=== PATIENT | female | born 1980 | race Caucasian/White ===

== ENCOUNTER 2016-11-08 21:33 | Emergency (ER) | payer OTHER ==
[~2016-11-08 21:33] MED LIST: BACTRIM DS 8001 TAB PO; BENZONATATE100 MG PO; CEFDINIR300 MG PO; CEPHALEXIN500 MG PO; CLEOCIN HCL300 MG PO; DOXYCYCLINE HY100 M4 PO; FIORICET 50-301 EACH PO; FLAGYL 25O MG250 M1 PO; FLAGYL250 M1 PO; FLAGYL500 MG PO; FLEXERIL10 MG PO; KEFLEX250 M1 PO; KEFLEX500 M1 PO; KEFLEX500 MG PO; MOTRIN 600 MG600 MG PO; MOTRIN800 MG PO; NASONEX17 GM NASB; PROBIOTIC FORMU1 CAP PO; TYLENOL TAB 32325 MG PO; TYLENOL325 M1 PO; ZOFRAN ODT4 M1 SL
[2016-11-08 21:40] VITALS: BP 121/81
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
[2016-11-08] MEDS ORDERED: CYCLOBENZAPRINE10 M1 PO (22:44)
== END 2016-11-08 23:00 ==
LOC: ERH 21:33
DX: S09.90XA Unspecified injury of head, initial encounter (principal); V49.40XA Driver injured in collision with unspecified motor vehicles in traffic accident, initial encounter

== ENCOUNTER 2016-12-28 15:00 | Emergency (ER) | payer OTHER ==
[~2016-12-28] VITALS: Ht 167.6 cm; Wt 113.4 kg
[~2016-12-28 15:00] MED LIST changes: +CYCLOBENZAPRINE10 M1 PO
--- NOTE | 2016-12-28 15:54 | RADIOLOGY REPORT ---
EXAMINATION: XR CHEST CLINICAL INFORMATION: Cough and nasal congestion. COMPARISON: None. TECHNIQUE: PA and lateral views of the chest were obtained. FINDINGS: The lungs are well-expanded and clear without focal airspace consolidation. No pleural effusions or pneumothoraces are identified. Cardiomediastinal contours are within normal limits. Soft tissues are unremarkable. No acute osseous abnormality is identified. IMPRESSION: No acute pulmonary process.
[2016-12-28] MEDS ORDERED: MUCINEX FAST-M1 EA12 PO (16:19)
[2016-12-28 17:15] LABS: ABSOLUTE BASOPHIL COUNT 0 /CUMM (0.0-0.2); ABSOLUTE EOSINOPHIL COUNT 0 /CUMM (0.0-0.7); ABSOLUTE GRANULOCYTE CT 3.3 /CUMM (1.4-6.5); ABSOLUTE MONOCYTE COUNT 0.4 /CUMM (0.10-0.60); BASOPHIL % 0.3 % (0.0-2.0); EOSINOPHIL % 0 % (0-5); MEAN CORPUSCULAR HGB 27.5 PG (27.0-31.0); MEAN CORPUSCULAR HGB CONC 32.8 G/DL (33.0-37.0); MEAN CORPUSCULAR VOLUME 83.9 FL (81.0-99.0); MEAN PLATELET VOLUME 8.1 FL (7.4-10.4); PLATELET COUNT 170 /CUMM (130-400); RBC DISTRIBUTION WIDTH 13.8 % (11.5-14.5); RED BLOOD CELL CT 5.12 /CUMM (4.20-5.40); WHITE BLOOD CELL COUNT 4.7 /CUMM (4.8-10.8)
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
[2016-12-28 18:30] VITALS: BP 144/79
== END 2016-12-28 18:32 ==
LOC: ERH 15:00
PROVIDERS: Internal Medicine Interventional Cardiology
DX: J11.1 Influenza due to unidentified influenza virus with other respiratory manifestations (principal); R07.89 Other chest pain; Z87.891 Personal history of nicotine dependence
CPT/HCPCS: 1263; 87040; 93005; 93010; 96360

== ENCOUNTER 2017-12-11 17:21 | Emergency (ER) | payer OTHER ==
[~2017-12-11] VITALS: Ht 167.6 cm; Wt 117.9 kg
[~2017-12-11 17:21] MED LIST changes: +BUTALB-ACETAMI1 EACH PO; +IMITREX50 M1 PO; +MUCINEX FAST-M1 EA12 PO
--- NOTE | 2017-12-11 17:42 | ED GI/GU/ABDOMINAL COMPLAINT ---
See Addendum History of Present Illness General Chief Complaint: General Adult Stated Complaint: SENT IN BY YELITZA JACKSON FOR ?VOMITING AND FEVER Source: patient Exam Limitations: no limitations Vital Signs & Intake/Output Vital Signs & Intake/Output Vital Signs Date Time Temp Pulse Resp B/P B/P Pulse O2 O2 Flow FiO2 Mean Ox Delivery Rate 12/11 2234 88 18 117/52 98 Room Air 12/11 2143 98.5 87 19 121/69 99 Room Air 12/11 1726 96.3 109 15 123/87 98 Room Air Room Air Allergies Coded Allergies: clindamycin (Severe, C DIFF 12/11/17) Penicillins (HIVES 12/11/17) oxycodone (SWELLING THROAT 12/11/17) Reconcile Medications Butalb/Acetaminophen/Caffeine (Lnagfp-Nwslwpuj-Yqik 50-325-40) 50 MG-325 MG-40 MG TABLET 1-2 TAB PO Q8P HEADACHE Dicyclomine HCl 10 MG CAPSULE 1-2 CAP PO TID abd pain Ondansetron (Zofran Odt) 4 MG TAB.RAPDIS 1 TAB SL TID nausea Promethazine HCl 25 MG TABLET 1 TAB PO Q6P PRN nausea Sumatriptan Succinate (Imitrex) 50 MG TABLET 1 TAB PO AD HEADACHE Triage Note: PT SENT TO ED BY DR. JACKSON FOR C/C OF DIARRHEA, NAUSEA AND VOMITING. HAS BEEN ON FLAGYL FOR 14 DAYS WITHOUT RELIEF. HX OF CDIFF. PRESCRIBED VANCO BUT HAS NOT HAD CHANCE TO PICK IT UP. Triage Nurses Notes Reviewed? yes ? n Is pt currently ? No Onset: Abrupt Duration: week(s):, constant, continues in ED Timing: recent history Quality/Severity: cramping, moderate, sharpness Location: generalized abdomen Radiation: no radiation Activities at Onset: none No Modifying Factors: none HPI: 37-year-old female comes into the emergency room with complaints of lower abdominal cramping. She's had associated diarrhea has been going on for weeks. She has a remote history of C. difficile. She denies any recent antibiotic use. She reports that her diarrhea has been persistent. She was started on Flagyl for potential C. difficile. She followed up with her gastrologist Dr. Jackson who told her to finish the course of antibiotics. Her symptoms got better and then worse again. She is now still having persistent loose stool. She comes in for further evaluation. (Lance Strickland) Past History Travel History Traveled to [place] past 21 day No Medical History Any Pertinent Medical History? see below for history Neurological: NONE EENT: recurrent parotitis Cardiovascular: NONE Respiratory: NONE Gastrointestinal: C DIFF Hepatic: NONE Renal: nephrolithiasis Musculoskeletal: NONE Psychiatric: NONE Endocrine: NONE (gestational) Blood Disorders: SJOGRENS Cancer(s): NONE AUDIOVISUAL AIDS TECHNICIAN/Reproductive: NONE Other Medical Hx: Thymus mass History of MRSA: No History of VRE: No History of CDIFF: No Surgical History Surgical History: (x2) Psychosocial History Who do you live with Spouse Services at Home None What is your primary language Bulgarian Tobacco Use: Quit >30 days ago ETOH Use: denies use Illicit Drug Use: denies illicit drug use Family History Family History, If Any: SISTER FH: kidney failure Relation not specified for: Coronary artery disease in father Hypertension in sister Stroke or transient ischemic attack in father Type 2 diabetes mellitus in mother Hx Contributory? No (Lance Strickland) Review of Systems Review of Systems Constitutional: Reports: see HPI. EENTM: Reports: no symptoms. Respiratory: Reports: no symptoms. Cardiovascular: Reports: no symptoms. GI: Reports: see HPI. Genitourinary: Reports: no symptoms. Musculoskeletal: Reports: no symptoms. Skin: Reports: no symptoms. Neurological/Psychological: Reports: no symptoms. Hematologic/Endocrine: Reports: no symptoms. Immunologic/Allergic: Reports: no symptoms. All Other Systems: Reviewed and Negative (Lance Strickland) Physical Exam Physical Exam General Appearance: well developed/nourished, no apparent distress, alert Head: atraumatic, normal appearance Eyes: Bilateral: normal appearance. Ears, Nose, Throat, Mouth: hearing grossly normal, moist mucous membrane Neck: normal inspection Respiratory: normal breath sounds, no respiratory distress Cardiovascular: regular rate/rhythm Gastrointestinal: soft, non-tender Back: normal inspection Extremities: normal range of motion Neurologic/Psych: awake, alert, oriented x 3, normal gait Skin: intact, normal color Core Measures ACS in differential dx? No Sepsis Present: No Sepsis Focused Exam Completed? No (Lance Strickland) Progress Differential Diagnosis: appendicitis, bowel obstruction, cholecystitis, diverticulitis, inflamm bowel dis, COLITIS, C DIFF, GASOTROENTERITIS Plan of Care: Orders Procedure Date/time Status Add-on Test (ER Only) 12/11 1741 Active HUMAN BETA HCG SCREEN 12/11 1741 Complete CULTURE,STOOL 12/11 1732 Active C.DIFFICILE 12/11 1732 Active LACTIC ACID 12/11 1732 Complete COMPREHENSIVE METABOLIC PANEL 12/11 1732 Complete CBC WITHOUT DIFFERENTIAL 12/11 1732 Complete Laboratory Tests 12/11/172032: Lactic Acid Cancelled 12/11/171741: Anion Gap 15, Estimated GFR > 60, BUN/Creatinine Ratio 15.0, Glucose 99, Lactic Acid 0.7, Calcium 9.0, Total Bilirubin 0.5, AST 74 H, ALT 85 H, Alkaline Phosphatase 73, Total Protein 8.5 H, Albumin 4.5, Globulin 4.0, Albumin/ Globulin Ratio 1.1, Total Beta HCG NEGATIVE, CBC w Diff NO MAN DIFF REQ, RBC 5.00, MCV 83.9, MCH 28.0, MCHC 33.3, RDW 13.4, MPV 7.6, Gran % 84.3 H, Lymphocytes % 12.5 L, Monocytes % 3.2, Eosinophils % 0, Basophils % 0, Absolute Granulocytes 5.5, Absolute Lymphocytes 0.8 L, Absolute Monocytes 0.2, Absolute Eosinophils 0, Absolute Basophils 0 Microbiology 12/11 1749 STOOL: Clostridium difficile Toxin A & B - RECD 12/11 1749 STOOL: Stool Culture - RECD Initial ED EKG: none (Lance Strickland) Departure Departure Disposition: HOME OR SELF CARE Condition: Stable Clinical Impression Primary Impression: Diarrhea Referrals: Gabriela BURGESS,Eric Walker (PCP/Family) Additional Instructions: Take Phenergan, Zofran, and Bentyl as prescribed. Follow-up with oil and gas field technician for urologist. Return concerns worsening symptoms Please go over all results of today's visit with your primary care doctor. Contact your primary care doctor to let them know you were here in the emergency room. There may be nonspecific findings which may not be related to your visit today here in the emergency room but may require further evaluation and chronic monitoring by your primary care doctor. If you had a laceration today the chance of foreign body always remains. You should follow-up with your primary care doctor for recheck in 3-5 days for a wound check. If you had an x-ray done there is a chance that a fracture could have been missed on initial read and you should follow-up with your primary care doctor for repeat x-rays if symptoms persist. If your blood pressure was elevated here in the emergency room please have rechecked by kemar primary care doctor within the next 48. If you were prescribed a narcotic here in the emergency room or any type of controlled substances you're not allowed to drive while taking this medication or operate any type of heavy machinery. Narcotics can make you feel lightheaded dizziness nausea and can cause constipation. You may need to picking tech a stool softener. Thank you for choosing [facility] emergency room. Please return to the emergency room immediately if you have any other concerns worsening of symptoms. Departure Forms: Customer Survey General Discharge Information Prescriptions: Current Visit Scripts Promethazine HCl 1 TAB PO Q6P PRN nausea #30 TAB Ondansetron (Zofran Odt) 1 TAB SL TID #10 TAB Dicyclomine HCl 1-2 CAP PO TID #30 CAP Comments 12/11/2017 11:11:57 PM Patient clinically looks well. Patient is in no apparent distress. Patient is nontoxic-appearing. Patient is resting comfortably on stretcher. She does not appear to be clinically dehydrated. She was currently on a course of Flagyl. A stool culture and C. difficile was sent off. Vancomycin had been called in by her gastric urologist. Patient was prescribed oral meds to go home with. She was tolerating oral liquids here. Safe for discharge at this time. Return if any other concerns. She understands and agrees with plan of care. (Derrick EPACOCK,Lance) PA/ENFORCEMENT OFFICER Co-Sign Statement Statement: ED Attending supervision documentation- I saw and evaluated the patient. I have also reviewed all the pertinent lab results and diagnostic results. I agree with the findings and the plan of care as documented in the PA's/ENFORCEMENT OFFICER's documentation. x I have reviewed the ED Record and agree with the PA's/ENFORCEMENT OFFICER's documentation. [] Additions or exceptions (if any) to the PAs/ENFORCEMENT OFFICER's note and plan are summarized below: [] (Elida BURGESS,Hudson)
[2017-12-11 17:55] LABS: ABSOLUTE BASOPHIL COUNT 0 /CUMM (0.0-0.2); ABSOLUTE EOSINOPHIL COUNT 0 /CUMM (0.0-0.7); ABSOLUTE GRANULOCYTE CT 5.5 /CUMM (1.4-6.5); ABSOLUTE LYMPH COUNT 0.8 /CUMM (1.2-3.4); ABSOLUTE MONOCYTE COUNT 0.2 /CUMM (0.10-0.60); BASOPHIL % 0 % (0.0-2.0); EOSINOPHIL % 0 % (0-5); GRANULOCYTE % 84.3 % (42.2-75.2); MEAN CORPUSCULAR HGB CONC 33.3 G/DL (33.0-37.0); MEAN CORPUSCULAR VOLUME 83.9 FL (81.0-99.0); MEAN PLATELET VOLUME 7.6 FL (7.4-10.4); PLATELET COUNT 210 /CUMM (130-400); RBC DISTRIBUTION WIDTH 13.4 % (11.5-14.5); WHITE BLOOD CELL COUNT 6.6 /CUMM (4.8-10.8)
[2017-12-11 22:34] VITALS: BP 117/52
[2017-12-11] MEDS ORDERED: DICYCLOMINE HCL10 M1 PO (23:08)
[2017-12-11] MEDS ORDERED: ZOFRAN ODT4 M1 SL (23:08)
[2017-12-11] MEDS ORDERED: PROMETHAZINE HC25 M3 PO (23:08)
== END 2017-12-11 23:21 ==
LOC: ERH 17:21
PROVIDERS: Physician Assistant Medical
DX: R19.7 Diarrhea, unspecified (principal)
CPT/HCPCS: 87045; 96361; 96374; J2405; J3101